=== PATIENT | male | born 1980 | race American Indian/Alaskan Native ===

== ENCOUNTER 2019-07-10 22:32 | Emergency (ER) | payer SELFPAY ==
[2019-07-10 22:43] VITALS: BP 130/79
[2019-07-10] MEDS ORDERED: ACETAMINOPHEN 500 MG TAB PO ONE (23:44)
[2019-07-10] MEDS ORDERED: FUROSEMIDE 20 MG TAB PO ONE (23:44)
--- NOTE | 2019-07-10 23:59 | Emergency Department Report ---
ED General Adult HPI - General Chief complaint: Extremity Injury, Lower Stated complaint: LT LEG PAIN/SWOLLEN Time Seen by Provider: 07/10/19 23:40 Source: patient Mode of arrival: Ambulatory Limitations: No Limitations - History of Present Illness Initial comments: Mr. Roland is a 39 y/o aam with hx of LLE Edema for pas 20 yrs, states usually tx with lasix prn and tyelnol for pain. states leg flare that started 3 days ago but he is out of lasix. pt denies sob ,no cp, no numbness no tingling, no pain with dorsoflexion, no calf pain. pt remains ambulatory to baseline per pt. pt states he works on his feet for 10-12 hrs 5-6 days pt week. last dose for lasix was 3 weeks ago. There is no cough sob or wheezing, no freitas, no PND. Onset/Timin -: days(s), unknown (chronic ) Location: lower extremity Radiation: extremity Severity scale (0 -10): 3 Quality: other (swelling ) Consistency: constant Improves with: medication Worsens with: none Associated Symptoms: denies other symptoms - Related Data Previous Rx's Medication Instructions Recorded Last Taken Type Acetaminophen/Codeine [Tylenol #3] 1 tab PO Q6H PRN #20 tab 02/21/15 Unknown Rx Penicillin Vk [Veetids TAB] 500 mg PO QID #28 tablet 02/21/15 Unknown Rx Acetaminophen [Acetaminophen TAB] 1,000 mg PO Q6HR PRN #30 tablet 07/10/19 Unknown Rx Furosemide [Lasix TAB] 40 mg PO QDAY #3 tablet 07/10/19 Unknown Rx hydroCHLOROthiazide [HCTZ] 25 mg PO QDAY #30 tablet 07/10/19 Unknown Rx Allergies Allergy/AdvReac Type Severity Reaction Status Date / Time No Known Allergies Allergy Unverified 02/20/15 21:35 ED Review of Systems ROS: Stated complaint: LT LEG PAIN/SWOLLEN Other details as noted in HPI Constitutional: denies: chills, fever Eyes: denies: eye pain, eye discharge, vision change ENT: denies: ear pain, throat pain Respiratory: denies: cough, shortness of breath, wheezing Cardiovascular: denies: chest pain, palpitations Endocrine: no symptoms reported Gastrointestinal: denies: abdominal pain, nausea, diarrhea Genitourinary: denies: urgency, dysuria Musculoskeletal: arthralgia, other (LLE edema ). denies: back pain, joint swelling Skin: denies: rash, lesions Neurological: denies: headache, weakness, paresthesias Psychiatric: denies: anxiety, depression Hematological/Lymphatic: denies: easy bleeding, easy bruising ED Past Medical Hx - Past Medical History Previous Medical History?: Yes Additional medical history: hernia, LYMPHADEMA LEFT LEG - Surgical History Past Surgical History?: Yes Additional Surgical History: hernia repair - Social History Smoking Status: Current Some Day Smoker Substance Use Type: Alcohol - Medications Home Medications: Home Medications Medication Instructions Recorded Confirmed Last Taken Type Acetaminophen/Codeine [Tylenol #3] 1 tab PO Q6H PRN #20 tab 02/21/15 Unknown Rx Penicillin Vk [Veetids TAB] 500 mg PO QID #28 tablet 02/21/15 Unknown Rx Acetaminophen [Acetaminophen TAB] 1,000 mg PO Q6HR PRN #30 tablet 07/10/19 Unknown Rx Furosemide [Lasix TAB] 40 mg PO QDAY #3 tablet 07/10/19 Unknown Rx hydroCHLOROthiazide [HCTZ] 25 mg PO QDAY #30 tablet 07/10/19 Unknown Rx ED Physical Exam - General Limitations: No Limitations General appearance: alert, in no apparent distress - Head Head exam: Present: atraumatic, normocephalic - Eye Eye exam: Present: normal appearance, PERRL, EOMI Pupils: Present: normal accommodation - ENT ENT exam: Present: mucous membranes moist - Neck Neck exam: Present: normal inspection, full ROM. Absent: tenderness, meningismus, lymphadenopathy, thyromegaly - Respiratory Respiratory exam: Present: normal lung sounds bilaterally. Absent: respiratory distress, wheezes, rales, rhonchi, stridor, chest wall tenderness - Cardiovascular Cardiovascular Exam: Present: regular rate, normal rhythm, normal heart sounds. Absent: systolic murmur, diastolic murmur, rubs, gallop - GI/Abdominal GI/Abdominal exam: Present: soft, normal bowel sounds. Absent: distended, tenderness, bruit, hernia - Rectal Rectal exam: Present: deferred - Extremities Exam Extremities exam: Present: normal inspection, full ROM, normal capillary refill, pedal edema. Absent: tenderness, joint swelling, calf tenderness - Expanded Lower Extremity Exam Left Lower Leg exam: Present: full ROM, swelling. Absent: tenderness, abrasion, laceration, ecchymosis, deformity, crepidus, dislocation, erythema, palpable cord, Say's sign Ankle exam: Present: normal inspection, full ROM, swelling. Absent: tenderness Foot/Toe exam: Present: normal inspection, full ROM. Absent: tenderness Neuro vascular tendon exam: Absent: pulse deficit, motor deficit, sensory deficit, tendon deficit Gait: Positive: observed and normal - Back Exam Back exam: Present: normal inspection, full ROM. Absent: tenderness, CVA tenderness (R), CVA tenderness (L) - Neurological Exam Neurological exam: Present: alert, oriented X3, CN II-XII intact, normal gait, reflexes normal. Absent: motor sensory deficit - Psychiatric Psychiatric exam: Present: normal affect, normal mood - Skin Skin exam: Present: warm, dry, intact, normal color. Absent: rash ED Course Vital Signs 07/10/19 22:36 Temperature 98.3 F Pulse Rate 69 Respiratory 18 Rate Blood Pressure 130/79 O2 Sat by Pulse 95 Oximetry ED Medical Decision Making - Medical Decision Making There is +1 pitting edema LLE , distal pulses intact +2, lung sound clear bilat, there is no sob, no wheezing, no chough , no jvd, no bruit, neg say's sign, no pain with dorsoflexion pt is ambulatory with steady gait. plan: lasix 40 mg po daily x 3 days, follow up pcp at [facility] , return to ed if symptoms worens. Well DVT is negative. Critical care attestation.: If time is entered above; I have spent that time in minutes in the direct care of this critically ill patient, excluding procedure time. ED Disposition Clinical Impression: Leg edema, left Disposition: DC-01 TO HOME OR SELFCARE Is pt being admited?: No Does the pt Need Aspirin: No Condition: Stable Instructions: Leg Edema (ED) Additional Instructions: Use compression stockings as previously prescribed. Prescriptions: Acetaminophen [Acetaminophen TAB] 1,000 mg PO Q6HR PRN #30 tablet PRN Reason: pain hydroCHLOROthiazide [HCTZ] 25 mg PO QDAY #30 tablet Furosemide [Lasix TAB] 40 mg PO QDAY #3 tablet Referrals: [facility] [Outside] - 3-5 Days Forms: Work/School Release Form(ED) Time of Disposition: 23:56
== END 2019-07-11 01:30 | disposition home or self-care (01) ==
LOC: ED 22:32
DX: R60.0 Localized edema (principal); F17.200 Nicotine dependence, unspecified, uncomplicated; Z79.899 Other long term (current) drug therapy; Z98.890 Other specified postprocedural states

== ENCOUNTER 2019-11-15 11:05 | Emergency (ER) | payer SELFPAY ==
[2019-11-15 11:24] VITALS: BP 119/85
[2019-11-15] MEDS ORDERED: IBUPROFEN 600 MG TAB PO ONE (11:41)
[2019-11-15] MEDS ORDERED: HYDROcodone/ACETAMINOPHEN 7.5-325MG TAB PO ONE (11:41)
--- NOTE | 2019-11-15 11:57 | Emergency Department Report ---
Chief Complaint: Dental/Oral Stated Complaint: TOOTH PAIN Time Seen by Provider: 11/15/19 11:33 - HPI History of Present Illness: 39-year-old -[place] male presents to the emergency room for a broken tooth with no relief from Advil. Patient states she has been taking Advil and using the cerumen to clean his mouth. Patient states that he called a dentist but they did not have any appointments today. - Exam Vital Signs: Vital Signs 11/15/19 11:16 Temperature 98.3 F Pulse Rate 58 L Respiratory 18 Rate Blood Pressure 119/85 O2 Sat by Pulse 99 Oximetry Physical Exam: Gen: alert oriented NAD HEENT: Tooth #14 is fractured through fourth of the tooth to the gums no gum gingiva enlargement. Appears to have nerve exposure. MSE screening note: Focused history and physical exam performed. Due to findings the following was ordered: ED Disposition for MSE Disposition: MED SCREENING EXAM-LEFT Is pt being admited?: No Does the pt Need Aspirin: No Condition: Stable Additional Instructions: Recommendation to follow-up with a dentist. Continue taking ibuprofen as needed for pain management. Referrals: PRIMARY CARE, [Primary Care Provider] - 3-5 Days [facility] [Outside] - 3-5 Days [facility] [Outside] - 3-5 Days [facility] [Outside] - 3-5 Days Forms: Work/School Release Form(ED)
== END 2019-11-15 12:27 | disposition left against medical advice (07) ==
LOC: ED 11:05
DX: S02.5XXA Fracture of tooth (traumatic), initial encounter for closed fracture (principal); X58.XXXA Exposure to other specified factors, initial encounter; Y93.89 Activity, other specified; Y92.89 Other specified places as the place of occurrence of the external cause; Y99.8 Other external cause status
CPT/HCPCS: 99282